=== PATIENT | male | born 2000 | race Caucasian/White ===

== ENCOUNTER 2023-06-18 10:13 | Outpatient (CLI) | payer BC | END 2023-06-18 10:14 | disposition home or self-care (01) | LOC: SCSRAD 10:13 | PROVIDERS: ATTEND Family Medicine | DX: N23 Unspecified renal colic (principal) | CPT/HCPCS: 74018 ==

== ENCOUNTER 2023-06-22 12:20 | Outpatient (CLI) | payer BC | END 2023-06-22 12:21 | disposition home or self-care (01) | LOC: CT 12:20 | PROVIDERS: ATTEND Family Medicine | DX: N23 Unspecified renal colic (principal); K76.0 Fatty (change of) liver, not elsewhere classified | CPT/HCPCS: 74176 ==